=== PATIENT | male | born 1955 | race Caucasian/White ===

== ENCOUNTER 2022-03-04 06:52 | Emergency (ER) | payer OTHER, MEDICARE ==
[~2022-03-04] VITALS: Ht 180.3 cm; Wt 81.6 kg
[2022-03-04 06:55] VITALS: BP_SYST 154
--- NOTE | 2022-03-04 07:05 | NUR ---
RECEIVED PT FROM BOO PAIGE. CODE STROKE CALLED. IV CATH STARTED TO LAC 18G. PT IS AAOX4, DENIES H/A AND DIZZINESS. RESP E/U. ON R/A. DENIES N/V/D/C. DISTAL PULSES NORMAL, SKIN CDI, NO BLE EDEMA. DENIES PAIN. SIDERAILS UP X2. Addendum: 03/04/22 at 1051 by [id number] BS [id number].
--- NOTE | 2022-03-04 07:06 | NUR ---
RECEIVED PT BIB BLS TRANSPORT C/O WEAKNESS YTO RLE. PT STATED THAT HE WOKE UP AT 0330 TODAY AND PER PT THERE IS NUMBNESS TO HIS RUE AND RLE AND HE NOTICED THAT HIS RT LEG WAS WEAK. NO SLURRING IN SPEECH NOTED. PT IS SPEAKING IN FULL SENTENCES. NO FACIAL ASSYMETRY. NOTED DRIFT TO RT LEG ON TRIAGE ASSESSMENT. PT DENIES NUMBNESS AT THIS TIME. PER PT LWK WAS AT 2200 LAST NIGHT. PMH:HTN, CHRONIC LIVER DISEASE PRESENTED HERE AAOX4, NO SOB NOTED AND NOT IN ANY DISTRESS AT THIS TIME.
--- NOTE | 2022-03-04 07:06 | NUR ---
DR. BURKS AT BEDSIDE TO ASSESS PT.
--- NOTE | 2022-03-04 07:18 | NUR ---
PT TAKEN FOR CT SCAN, LABS COMPLETED.
[2022-03-04] MEDS ORDERED: iohexoL 300 mgI/mL, 150 ML INFUS..BTL IV ONE (07:24)
[2022-03-04 07:33] LABS: BASOPHILS # (AUTO) 0.1 K/uL (0.0-0.2); BASOPHILS % (AUTO) 0.6 % (0.0-2.0); EOSINOPHILS # (AUTO) 0.2 K/uL (0.0-0.4); EOSINOPHILS % (AUTO) 1.9 % (0.0-4.0); LYMPHOCYTES # (AUTO) 2.3 K/uL (1.0-5.5); LYMPHOCYTES % (AUTO) 23.5 % (20.5-51.5); MEAN CORPUSCULAR VOLUME 90 fL (79.0-98.0); MONOCYTES # (AUTO) 0.8 K/uL (0.0-1.0); MONOCYTES % (AUTO) 8.4 % (1.7-9.3); NEUTROPHILS # (AUTO) 6.3 K/uL (1.8-7.7); NEUTROPHILS % (AUTO) 65.6 % (40.0-70.0); PLATELET COUNT (AUTO) 224 K/uL (130-430); RED BLOOD CELL COUNT(AUTO) 5.23 MIL/uL (4.2-6.2); WHITE BLOOD COUNT (AUTO) 9.6 K/uL (4.8-10.8)
[2022-03-04 07:54] LABS: ANION GAP 9 (5-15); CALCIUM 8.9 mg/dL (8.4-11.0); CHLORIDE 104 mmol/L (98-107); CREATININE 1.32 mg/dL (0.55-1.30); GLUCOSE 116 mg/dL (70-99); POTASSIUM 3.8 mmol/L (3.5-5.1); SODIUM SERUM 139 mmol/L (136-145); UREA NITROGEN, BLOOD 18 mg/dL (8-21)
[2022-03-04 07:57] LABS: GFR AFRICAN AMERICAN 70 mL/min (>90); PROTHROMBIN TIME 10.4 SECS (9.5-12.5)
[2022-03-04 08:04] LABS: ALANINE AMINOTRANSFERASE 23 U/L (12-78); ALBUMIN 3.6 g/dL (3.4-4.8); ASPARTATE AMINOTRANSFERASE 22 U/L (10-37); TOTAL BILIRUBIN 0.9 mg/dL (0.0-1.0)
--- NOTE | 2022-03-04 10:12 | NUR ---
PT TO TRANSPORT TO [facility] ([phone]), TRANSFER FORM SIGNED, REPORT GIVEN TO BOO BIANCHI AT [facility]. INFORMED HIM AMBULANCE TO LICENSED MIDWIFE PT AT 1100, PT TO BE FOLLOWED BY DR. TELLO.
[2022-03-04] MEDS ORDERED: cloNIDine HCL 0.1 MG TABLET PO ONE (11:15)
--- NOTE | 2022-03-04 11:23 | NUR ---
CATAPRES 0.1MG PO GIVEN FOR SBP 200MMHG. PT DENIES HAGER AND DIZZINESS.
[2022-03-04 11:30] VITALS: BP_SYST 200
--- NOTE | 2022-03-04 11:43 | NUR ---
Patient to be transferred to [facility]. Is being transferred due to higher level of care. Receiving facility has accepting physician and available space. ER physician has signed transfer form. Patient or responsible democrat has agreed to transfer and signed form. Patient belongings inventoried and will be sent with patient. Copy of nursing notes, lab reports, EKG, Physicians Orders and X-rays to be sent with patient. Report called to BOO Toussaint at receiving facility. Receiving physician is Dr. Wolf.
[2022-03-04 12:39] LABS: BARBITURATE, URINE NEGATIVE (NEG <=200); BENZODIAZEPINE, URINE NEGATIVE (NEG <=150); CANNABINOID, URINE NEGATIVE (NEG <=50); COCAINE, URINE NEGATIVE (NEG <=150); METHAMPHETAMINES SCREEN,URINE NEGATIVE (NEG <=500); OPIATE, URINE NEGATIVE (NEG <=100); PHENCYCLIDINE SCREEN,URINE NEGATIVE (NEG <=25); UR TRICYCLIC ANTIDEPRESSANTS NEGATIVE (NEG <=300); URINE AMPHETAMINE NEGATIVE (NEG <=500); URINE METHADONE NEGATIVE (NEG <=200); URINE OXYCODONE SCREEN NEGATIVE (NEG <=100); URINE PROPOXYPHENE SCREEN NEGATIVE (NEG <=300)
== END 2022-03-04 11:30 | disposition short-term general hospital (02) ==
LOC: SED 06:52
DX: C71.2 Malignant neoplasm of temporal lobe (principal); M62.81 Muscle weakness (generalized); I10 Essential (primary) hypertension; Z88.5 Allergy status to narcotic agent; Z79.899 Other long term (current) drug therapy
CPT/HCPCS: 99291; 70496; 71045; 80307; 80053; 85025; 85610; 85730; 86886; 86900; 86901; 84484; 36415; 93005; 70498; 70450; 80048; 76376; Q9967